=== PATIENT | female | born 1965 | race Caucasian/White ===

== ENCOUNTER 2017-03-24 08:27 | Observation (INO) ==
[2017-03-24] MEDS ORDERED: ASPIRIN PO STA (08:40)
--- NOTE | 2017-03-24 08:45 | EKG Report ---
Test Performed on : 03/24/2017 08:34:14 AM Test Reason : CHEST PAIN Blood Pressure : / mmHG Vent. Rate : 103 BPM Atrial Rate : 103 BPM P-R Int : 148 ms QRS Dur : 078 ms QT Int : 364 ms P-R-T Axes : 078 086 065 degrees QTc Int : 476 ms Sinus tachycardia. Otherwise normal ECG When compared with ECG of 01-FEB-2017 07:39, No significant change was found Unconfirmed Result
[2017-03-24 08:52] LABS: MANUAL DIFF NEEDED? NO
[2017-03-24 08:54] LABS: BASO% 0.4 % (0.0-0.8); EOS# 0.08 X1000 (0.0-0.7); EOS% 1.2 % (0.0-10.0); HEMATOCRIT 43.1 % (37.0-47.0); HEMOGLOBIN 14.4 g/dL (12.0-16.0); IMM GRAN# 0.02 X1000 (0.0-0.04); IMM GRAN% 0.3 % (0.0-0.5); LYMPH# 2.03 X1000 (1.2-3.4); LYMPH% 30.3 % (20.5-51.1); MCH 29.5 PG (27-31); MCHC 33.4 g/dL (33-37); MCV 88.3 FL (81-99); MONO# 0.24 X1000 (0.11-0.59); MONO% 3.6 % (1.7-9.3); MPV 10.2 FL (7.4-10.4); NEUT% 64.2 % (42.2-75.2); PLT 201 X1000 (130-400); RBC 4.88 XMIL (4.2-5.4)
[2017-03-24 09:13] LABS: AGAP 10; ALKALINE PHOSPHATASE 94 U/L (32-104); BUN 7 mg/dL (8-22); CALCIUM 8.7 mg/dL (8.8-10.2); CHLORIDE 102 mmol/L (98-107); CK PROFILE 32 U/L (24-173); COSMO 278; GOT 13 U/L (10-30); GPT 17 U/L (10-36); MAGNESIUM 1.8 mg/dL (1.5-2.7); POTASSIUM 3.4 mmol/L (3.5-5.1); SODIUM 139 mmol/L (136-145); TCO2 27 mmol/L (25-35); TOTAL PROTEIN 7.3 g/dL (6.3-8.3)
--- NOTE | 2017-03-24 09:16 | Diag Imaging Result Doc PS360 ---
EXAM: CHEST-PORTABLE HISTORY: CP TECHNIQUE: Portable AP COMPARISON: 07/09/2016 FINDINGS: The lungs are well expanded. The heart is not enlarged. The vessels are not distended. No pneumonia. No pleural effusions identified. Mild scoliosis. IMPRESSION: Negative chest. Electronically signed by Silverio Oliveira 03/24/2017 9:13 AM
[2017-03-24 09:38] LABS: INR 0.9 (0.86-1.15); PROTIME 12.9 Seconds (12.1-15.5)
[2017-03-24 09:58] LABS: URINE CULTURE PL NEEDED? NO
[2017-03-24 10:08] LABS: UR AMPHETAMINES QUAL NONE DETECTED (NONE DETECT); UR BARBITUATES QUAL NONE DETECTED (NONE DETECT); UR BENZODIAZEPIN QUAL NONE DETECTED (NONE DETECT); UR COCAINE QUAL NONE DETECTED (NONE DETECT); UR MDMA QUAL NONE DETECTED (NONE DETECT); UR METHADONE QUAL NONE DETECTED (NONE DETECT); UR METHAMPHETAMINE QUAL NONE DETECTED (NONE DETECT); UR OPIATES QUAL NONE DETECTED (NONE DETECT); UR OXYCODONE QUAL NONE DETECTED (NONE DETECT); UR PCP QUAL NONE DETECTED (NONE DETECT); UR TCA QUAL NONE DETECTED (NONE DETECT)
[2017-03-24 10:09] LABS: UR CANNABINOIDS QUAL PRESUMPTIVE POSITIVE (NONE DETECT)
[2017-03-24 10:24] LABS: BILIRUBIN URINE NEGATIVE (NEGATIVE); BLOOD URINE NEGATIVE (NEGATIVE); CLARITY CLEAR (CLEAR); COLOR YELLOW; GLUCOSE URINE NEGATIVE (NEGATIVE); LEUKOCYTES URINE NEGATIVE (NEGATIVE); NITRITE URINE NEGATIVE (NEGATIVE); PROTEIN URINE NEGATIVE (NEGATIVE); URINE EPITHELIAL CELLS <10 /HPF (<10); URINE SOURCE CLEAN CATCH; URINE WBC <10 /HPF (<10); UROBILINOGEN URINE NORMAL
[2017-03-24] MEDS ORDERED: ATIVAN IV ONE (10:47)
[2017-03-24] MEDS ORDERED: G.I. COCKTAIL PO ONE (10:47)
--- NOTE | 2017-03-24 10:49 | ED EKG INTERP ---
This chart was entered by Asya Navarrete Scribe, acting as scribe for Shellie Schmitz MD. EKG Interpretation - EKG Time of EKG reading by physician:: 08:34 EKG Read and Signed by:: Shellie Schmitz EKG Interpretation (*Must complete 3 of following elements*): Abnormal Rate: 103 Rhythm: sinus tachycardia [place]: normal QRS: normal [place] Interval: normal ST Wave: normal Comments: sinus tachycardia Attestation - Physician/ ROLANDA Attestation Patient care was provided by Advanced Practice Provider:: No The physician spent face to face time with patient:: Yes Advanced Practice Provider documentation review:: Supervising physician onsite and consulted in the evaluation and care of this patient. The physician did have a face to face encounter with the patient. This chart was documented by the indicated scribe, (Asya Navarrete Scribe) and accurately reflects the services I performed and decisions made by me, Shellie Schmitz MD, as attested by the provider's signature.
--- NOTE | 2017-03-24 11:57 | PROVIDER DOCUMENTATION ---
This chart was entered by Asya Navarrete Scribe, acting as scribe for Shellie Schmitz MD. HPI-Chest Pain - General Chief Complaint: Chest Pain Stated Complaint: CHEST PAIN Time Seen by Provider: 03/24/17 08:39 Source: patient Allergies/Adverse Reactions: Patient Allergies Allergy/AdvReac Type Severity Reaction Status Date / Time No Known Allergies Allergy Verified 03/24/17 08:37 Home Medications: Home Medication List Medication Instructions Recorded Confirmed Last Taken Type Mirtazapine [Remeron] 45 mg PO DAILY 02/20/15 03/24/17 08/21/15 20:00 History 45 Omeprazole [Prilosec] 40 mg PO DAILY 02/20/15 03/24/17 08/21/15 20:00 History 40 Fluphenazine HCl [Fluphenazine HCl] 5 mg PO DAILY 03/24/17 03/24/17 Unknown History - History of Present Illness-CP Nature of Presenting Problem: Patient is a 52 year old female who presents in the ED with complaints of chest pain. Patient states she woke up at 1:00 a.m. this morning with midsternal chest pain, and states she has also felt short of breath, has had a cough, and has a headache. She also states her pain intermittently worsens, and rates her pain at a 6 to 7 of 10 on the pain scale. She reports she has a history of hypertension but is no longer on blood pressure medication due to her blood pressure remaining normal, and reports history of a smoking. She also reports history of anxiety/depression, cholecystectomy, and reports she has had a normal stress test in the past (several years ago). She denies fever, nausea/ vomiting, urinary changes, diaphoresis, syncope, diarrhea, and any other symptoms. Location: reports: substernal Chest Pain Radiation: reports: no radiation Quality of Pain: reports: aching Severity in ED: moderate Onset/Duration: abrupt, this morning (1:00 a.m.) Timing: still present, intermittent Context/Activities at Onset: reports: none Modifying Factors: improves with: nothing Associated Symptoms: reports: headache, shortness of breath Nitro Today/Relief: no nitro taken today Aspirin Treatment Today: provided by ED Prior Chest Pain/Cardiac Workup: reports: stress test Similar Symptoms Previously?: No Recently Seen Here or By Another Healthcare Provider: No Review of Systems - Adult - REVIEW OF SYSTEMS - ADULT Constitutional: reports: no symptoms reported. denies: fever, night sweats Eyes: reports: no symptoms reported Ears, Nose, Mouth & Throat: reports: no symptoms reported Cardiovascular: reports: chest pain Respiratory: reports: shortness of breath Gastrointestinal: reports: no symptoms reported. denies: diarrhea, nausea, vomiting Genitourinary: reports: no symptoms reported. denies: see HPI, dysuria, discharge, frequency, flank pain, frequent UTI's, hematuria, hesitency, incontinence, urinary retention, urgency, other Musculoskeletal: reports: no symptoms reported Integumentary: reports: no symptoms reported Neurological: reports: headache/migraines. denies: syncope Psychiatric: reports: no symptoms reported Endocrine: reports: no symptoms reported Hematologic/Lymphatic: reports: no symptoms reported Allergic/Immunologic: reports: no symptoms reported Past History - Adult - PAST MEDICAL HISTORY-ADULT Review of Records: reports: Old Records Reviewed, Nursing Assessment Review, Medications Reviewed, Social history reviewed & non-contributory. Cardiovascular: reports: arrhythmia (tachycardia), HTN Respiratory: reports: asthma, COPD, sleep apnea Gastrointestinal: reports: denies history Obstetrical/Gynecological: reports: denies history Genitourinary: reports: denies history Musculoskeletal: reports: denies history Neurological: reports: denies history Psychiatric: reports: depression Endocrine/Immune: reports: denies history Other Conditions: reports: denies history - PRIOR SURGERIES/PROCEDURES Surgical/Procedure History: reports: cholecystectomy, hysterectomy - IMMUNIZATION STATUS Childhood Immunizations: See Nurse Assessment Flu Vaccine: See Nurse Assessment - FAMILY HISTORY Family History: reviewed, not pertinent - SOCIAL HISTORY Smoking: cigarettes, less than 1 pack/day Substance Use: none/never Alcohol Use Frequency: never Living Situation: family Physical Exam-General - PHYSICAL EXAM-ADULT Initial Vital Signs Reviewed: Yes - CONSTITUTIONAL General Appearance: alert, no apparent distress - EYES Eyes: PERRL/EOMI, pink conjunctivae - HEAD, EARS, NOSE, MOUTH & THROAT HENMT: normocephalic/atraumatic, moist mucous membranes - NECK Neck: non-tender, full range of motion, supple - RESPIRATORY Respiratory: chest non-tender, lungs clear, normal breath sounds, no pleuratic chest pain, no respiratory distress, no accessory muscle use - CARDIOVASCULAR Cardiovascular: normal peripheral pulses, regular rate, rhythm, no edema, no gallop, no JVD, no murmur - GASTROINTESTINAL (ABDOMEN) Abdominal Exam: normal bowel sounds, non tender, soft, no organomegaly, no pulsatile mass - LYMPHATIC Lymphatic: no adenopathy - MUSCULOSKELETAL Back Exam: normal inspection, no CVA tenderness, no vertebral tenderness Extremity: normal range of motion, non-tender, no pedal edema, no calf tenderness - SKIN Integumentary: normal color, normal turgor, warm/dry - NEUROLOGIC Neurologic: grossly normal, no motor/sensory deficits - PSYCHIATRIC Psych/Mental Status: normal mood/affect, oriented x 3 Progress - PLAN OF CARE/RESULTS Progress/Plan/Lab Results: Vital Signs - 8 hr 03/24/17 08:35 03/24/17 09:30 03/24/17 10:30 Pulse Rate 103 H 100 H 100 H Respiratory Rate 18 22 20 Blood Pressure 191/110 151/102 151/113 O2 Sat by Pulse Oximetry 93 L 95 95 03/24/17 11:30 Pulse Rate 104 H Respiratory Rate 20 Blood Pressure 148/78 O2 Sat by Pulse Oximetry 95 Laboratory Results - last 24 hr 03/24/17 03/24/17 03/24/17 08:45 08:45 08:45 WBC RBC Hgb Hct MCV MCH MCHC RDW Std Deviation Plt Count MPV Immature Gran % (Auto) Neut % (Auto) Lymph % (Auto) Price % (Auto) Eos % (Auto) Baso % (Auto) Immature Gran # (Auto) Neut # (Auto) Lymph # (Auto) Price # (Auto) Eos # (Auto) Baso # (Auto) PT INR D-Dimer Sodium 139 Potassium 3.4 L Chloride 102 Carbon Dioxide 27 Anion Gap 10 BUN 7 L Creatinine 0.7 Estimated GFR/1.73 m2 > 60 BUN/Creatinine Ratio 10 Glucose 152 H Calculated Osmolality 278 Calcium 8.7 L Magnesium 1.8 Total Bilirubin 0.30 AST 13 ALT 17 Alkaline Phosphatase 94 Creatine Kinase 32 Troponin T < 0.010 Vuv-[id number]-Lzggajjqaoc Pept 62 Total Protein 7.3 Albumin 4.0 Globulin 3.0 Albumin/Globulin Ratio 1.0 Urine Source Urine Color Urine Clarity Urine pH Ur Specific [place] Urine Protein Urine Ketones Urine Blood Urine Nitrite Urine Bilirubin Urine Urobilinogen Urine WBC Urine Microscopic WBC Ur Epithelial Cells Urine Glucose Urine Opiates Screen Ur Oxycodone Screen Urine Methadone Screen Ur Barbituates Screen Ur Tricyclics Screen Ur Phencyclidine Scrn Ur Amphetamines Screen U Methamphetamines Scrn Urine MDMA Screen U Benzodiazepines Scrn Urine Cocaine Screen U Cannabinoids Screen 03/24/17 03/24/17 03/24/17 08:45 08:45 09:50 WBC 6.69 RBC 4.88 Hgb 14.4 Hct 43.1 MCV 88.3 MCH 29.5 MCHC 33.4 RDW Std Deviation 13.3 Plt Count 201 MPV 10.2 Immature Gran % (Auto) 0.3 Neut % (Auto) 64.2 Lymph % (Auto) 30.3 Price % (Auto) 3.6 Eos % (Auto) 1.2 Baso % (Auto) 0.4 Immature Gran # (Auto) 0.02 Neut # (Auto) 4.29 Lymph # (Auto) 2.03 Price # (Auto) 0.24 Eos # (Auto) 0.08 Baso # (Auto) 0.03 PT 12.9 INR 0.90 D-Dimer 0.43 Sodium Potassium Chloride Carbon Dioxide Anion Gap BUN Creatinine Estimated GFR/1.73 m2 BUN/Creatinine Ratio Glucose Calculated Osmolality Calcium Magnesium Total Bilirubin AST ALT Alkaline Phosphatase Creatine Kinase Troponin T [id number]-[id number] Pept Total Protein Albumin Globulin Albumin/Globulin Ratio Urine Source CLEAN CATCH Urine Color YELLOW Urine Clarity CLEAR Urine pH 7.0 Ur Specific [place] 1.000 Urine Protein NEGATIVE Urine Ketones NEGATIVE Urine Blood NEGATIVE Urine Nitrite NEGATIVE Urine Bilirubin NEGATIVE Urine Urobilinogen NORMAL Urine WBC NEGATIVE Urine Microscopic WBC <10 Ur Epithelial Cells <10 Urine Glucose NEGATIVE Urine Opiates Screen Ur Oxycodone Screen Urine Methadone Screen Ur Barbituates Screen Ur Tricyclics Screen Ur Phencyclidine Scrn Ur Amphetamines Screen U Methamphetamines Scrn Urine MDMA Screen U Benzodiazepines Scrn Urine Cocaine Screen U Cannabinoids Screen 03/24/17 03/24/17 03/24/17 09:50 11:07 11:07 WBC RBC Hgb Hct MCV MCH MCHC RDW Std Deviation Plt Count MPV Immature Gran % (Auto) Neut % (Auto) Lymph % (Auto) Price % (Auto) Eos % (Auto) Baso % (Auto) Immature Gran # (Auto) Neut # (Auto) Lymph # (Auto) Price # (Auto) Eos # (Auto) Baso # (Auto) PT INR D-Dimer Sodium Potassium Chloride Carbon Dioxide Anion Gap BUN Creatinine Estimated GFR/1.73 m2 BUN/Creatinine Ratio Glucose Calculated Osmolality Calcium Magnesium Total Bilirubin AST ALT Alkaline Phosphatase Creatine Kinase 42 Troponin T < 0.010 Afb-O-Euxptimhdif Pept Total Protein Albumin Globulin Albumin/Globulin Ratio Urine Source Urine Color Urine Clarity Urine pH Ur Specific [place] Urine Protein Urine Ketones Urine Blood Urine Nitrite Urine Bilirubin Urine Urobilinogen Urine WBC Urine Microscopic WBC Ur Epithelial Cells Urine Glucose Urine Opiates Screen NONE DETECTED Ur Oxycodone Screen NONE DETECTED Urine Methadone Screen NONE DETECTED Ur Barbituates Screen NONE DETECTED Ur Tricyclics Screen NONE DETECTED Ur Phencyclidine Scrn NONE DETECTED Ur Amphetamines Screen NONE DETECTED U Methamphetamines Scrn NONE DETECTED Urine MDMA Screen NONE DETECTED U Benzodiazepines Scrn NONE DETECTED Urine Cocaine Screen NONE DETECTED U Cannabinoids Screen PRESUMPTIVE POSITIVE A Orders Category Date Time Status Cardiac Monitoring DIRECTED Care 03/24/17 08:41 Active Saline Loc NOW Care 03/24/17 08:41 Active CHEST-PORTABLE [RAD] Stat Exams 03/24/17 08:40 Completed CBC WITH ELECTRONIC DIFF [HEME] Stat Lab 03/24/17 08:45 Completed CK PROFILE [SP CHEM] Stat Lab 03/24/17 08:45 Completed CK PROFILE [SP CHEM] Stat Lab 03/24/17 11:07 Completed COMPREHENSIVE METABOLIC PANEL [CHEM] Stat Lab 03/24/17 08:[address] D-DIMER [address] [COAG] Stat Lab 03/24/17 08:45 Results MAGNESIUM [CHEM] Stat Lab 03/24/17 08:45 Completed PRO B-NATRIURETIC PEPTIDE Stat Lab 03/24/17 08:45 Com[address]IME WITH INR PL [COAG] Stat Lab 03/24/17 08:[address] [COAG] Stat Lab 03/24/17 08:45 Results TROPONIN T Stat Lab 03/24/17 08:45 Completed TROPONIN T Stat Lab 03/24/17 11:[address] W/POSS RFLX CULT [URINALYSIS] Stat Lab 03/24/17 09:50 Completed URINE DRUG SCREEN PL Stat Lab 03/24/17 09:50 Completed Aspirin Med 03/24/17 08:40 Discontinued 325 mg PO STAT STA Lido/Call Alk/Al&mg Hydrox [G.i. Cocktail] Med 03/24/17 10:47 Discontinued 30 ml PO NOW ONE Lorazepam [Ativan] Med 03/24/17 10:47 Discontinued 1 mg IV NOW ONE EKG [EKG] Stat Ther 03/24/17 08:41 Draft Result Diagrams: 03/24/17 08:45 03/24/17 08:45 - REASSESSMENT Reassessment #1 Time Reassessed: 11:56 Status: other (Pt still has CP after all ED management. Will admit to Dr. Garcia. ) - XRAY 1 XRAY Study: Chest Impression: Normal XRAY Interpretation: negative chest - CONSULTS/PCP/HOSPITALIST Notification #1 *Consult/PCP/Hospitalist*: Dr. Garcia Time Discussed: 11:57 Consult Disposition: Will see in ED, Admit Departure - Departure Date of Disposition Decision: 03/24/17 Time of Disposition Decision: 11:57 DIAGNOSIS: Chest pain Disposition: ADMITTED INPATIENT 09 Certified Medical Emergency: Emergent Condition: Stable Referrals and Follow-Ups: Lexus Claire MD [Primary Care Provider] - - Critical Care Note This patient required my direct & personal management of CC.: No Attestation - Physician/ ROLANDA Attestation Patient care was provided by Advanced Practice Provider:: No The physician spent face to face time with patient:: Yes Advanced Practice Provider documentation review:: Supervising physician onsite and consulted in the evaluation and care of this patient. The physician did have a face to face encounter with the patient. This chart was documented by the indicated scribe, (Asya Navarrete Scribe) and accurately reflects the services I performed and decisions made by me, Shellie Schmitz MD, as attested by the provider's signature.
[2017-03-24 12:52] LABS: PTT PL 32.6 Seconds (22.6-43.9)
--- NOTE | 2017-03-24 15:53 | HISTORY AND PHYSICAL ---
PRIMARY CARE PHYSICIAN: Dr. Claire CHIEF COMPLAINT: Chest pain. HISTORY OF PRESENTING ILLNESS: This is a 52-year-old female who presents to [facility] ER with complaints of midsternal, intermittent chest pain. States that she feels like something is sitting on her chest, it radiated through to her back. She also complained of shortness of breath, cough, and a headache. She states she had a normal stress test several years ago. Denied any nausea or diaphoresis. Her workup in the ER showed cardiac enzymes x2 sets were negative. Her EKG on arrival was sinus tachycardia at 103, so she was admitted to the medical unit for further evaluation and treatment. PAST MEDICAL HISTORY: Hypertension, anxiety, depression, COPD, and sleep apnea. PAST SURGICAL HISTORY: Cholecystectomy and a hysterectomy. FAMILY HISTORY: She has heart disease in both her parents and brother, cancer in both her parents, hypertension in both sides of her family, and a CVA in her mom. SOCIAL HISTORY: She currently lives with family. She was a 3 pack a day smoker for 40 years until the past 2 weeks she has decreased to 1 pack a day. Denies any alcohol use and states that she uses marijuana occasionally for her chronic pain. ALLERGIES: She has no known drug allergies. HOME MEDICATIONS: 1. Fluphenazine 5 mg p.o. daily. 2. Remeron 45 mg p.o. daily. 3. Prilosec 40 mg p.o. daily. LABORATORY DATA: Showed a white blood cell count of 6.69, hemoglobin 14.4, hematocrit 43.1, platelets 201, PT/INR 12.9 and 0.90 with a D-dimer of 0.43. Sodium 139, potassium 3.4, chloride 102, CO2 27, BUN 7, creatinine 0.7, glucose 152, magnesium 1.8. Cardiac enzymes x2 sets have been negative. Urinalysis was negative. Urine drug screen was presumptive positive for cannabinoids, otherwise negative. Chest x-ray showed a negative chest. EKG on arrival showed sinus tachycardia at 103. REVIEW OF SYSTEMS: She denied any fever, chills, blurred vision, dizziness. She was positive for substernal chest pain, shortness of breath, cough nonproductive, headache. She denied any abdominal pain, nausea, vomiting, constipation, diarrhea, or burning or hurting with urination. PHYSICAL EXAMINATION: VITAL SIGNS: On arrival: Pulse 103. Respirations 18. Blood pressure 191/ 110. Sating 93% on room air. Her blood pressure is currently down to 157/86 on arrival to the medical floor, sating 99% on 2 liters via nasal cannula. GENERAL: This is a 52-year-old female who is lying on the bed and answers questions appropriately. HEENT: Normocephalic, atraumatic. Pupils are equal, round, and reactive to light. Extraocular movements are intact. Oropharynx and nares are clear. NECK: Supple. LUNGS: Clear to auscultation bilaterally with equal lung expansion and chest wall movement. HEART: Regular rate and rhythm with no murmurs, rubs, or gallops. ABDOMEN: Soft, nontender, nondistended. Bowel sounds are present x4 quadrants. EXTREMITIES: There is no clubbing, cyanosis, or edema. NEUROLOGICAL: Cranial nerves 2 through 12 are grossly intact. ASSESSMENT: 1. Chest pain. 2. Hypertension. 3. Dyspnea. 4. Tobacco abuse. PLAN: 1. She was admitted to the medical unit at [place], placed on telemetry. 2. We will continue her home medications, give her a nicotine patch 21 mg transdermally. 3. We will schedule her for a stress test in the a.m. 4. She can have a healthy heart diet now and n.p.o. after midnight. 5. We will recheck a CBC and a BMP in the a.m. Dictated by BOB Curtis for Donovan Garcia MD cc: BOB Curtis MD Bhavna Gowda, MD pt examined, this could be bronchitis, pt does have a cough but wbc is normal and lungs sound clear , agree with noninvasive imaging [facility] MTDD
[2017-03-24] MEDS: NICODERM PATCH TD SCH (16:10)
[2017-03-24] MEDS ORDERED: TYLENOL PO PRN (18:24)
[2017-03-24] MEDS ORDERED: ZOFRAN IV PRN (18:25)
[2017-03-24] MEDS ORDERED: PRILOSEC PO SCH (21:00)
[2017-03-24] MEDS ORDERED: REMERON PO SCH (21:00)
[2017-03-24] MEDS ORDERED: PROLIXIN PO SCH (21:00)
[2017-03-24] MEDS: MORPHINE IV PRN (21:39)
--- NOTE | 2017-03-25 06:10 | EKG Report ---
Test Performed on : 03/25/2017 06:03:28 AM Test Reason : cp Blood Pressure : / mmHG Vent. Rate : 086 BPM Atrial Rate : 086 BPM P-R Int : 152 ms QRS Dur : 080 ms QT Int : 414 ms P-R-T Axes : 059 060 063 degrees QTc Int : 495 ms Normal sinus rhythm. Prolonged QT Abnormal ECG When compared with ECG of 24-MAR-2017 08:34, (Unconfirmed) No significant change was found Confirmed by Houston Sears MD ([id number]) on 04/13/2017 7:07:08 PM
[2017-03-25 06:50] LABS: MANUAL DIFF NEEDED? NO
[2017-03-25] MEDS ORDERED: PRILOSEC PO SCH (07:00)
[2017-03-25 07:03] LABS: BASO% 0.5 % (0.0-0.8); EOS# 0.09 X1000 (0.0-0.7); EOS% 1.5 % (0.0-10.0); HEMATOCRIT 42.8 % (37.0-47.0); HEMOGLOBIN 13.7 g/dL (12.0-16.0); IMM GRAN# 0.01 X1000 (0.0-0.04); IMM GRAN% 0.2 % (0.0-0.5); LYMPH# 2.18 X1000 (1.2-3.4); LYMPH% 35.8 % (20.5-51.1); MCH 28.4 PG (27-31); MCV 88.8 FL (81-99); MONO# 0.31 X1000 (0.11-0.59); MONO% 5.1 % (1.7-9.3); MPV 10.3 FL (7.4-10.4); NEUT% 56.9 % (42.2-75.2); PLT 196 X1000 (130-400); RBC 4.82 XMIL (4.2-5.4)
[2017-03-25 07:18] LABS: AGAP 8; BUN 5 mg/dL (8-22); CALCIUM 8.7 mg/dL (8.8-10.2); CHLORIDE 101 mmol/L (98-107); COSMO 274; POTASSIUM 3.6 mmol/L (3.5-5.1); SODIUM 139 mmol/L (136-145); TCO2 29 mmol/L (25-35)
[2017-03-25] MEDS: NICODERM PATCH TD SCH (08:32)
[2017-03-25] MEDS: MORPHINE IV PRN (08:32)
[2017-03-25] MEDS ORDERED: REMERON PO SCH (09:00)
[2017-03-25] MEDS ORDERED: PROLIXIN PO SCH (09:00)
[2017-03-25] MEDS ORDERED: ALBUTEROL NEB INH ONE (11:59)
[2017-03-25] MEDS ORDERED: LEXISCAN ONE (13:05)
[2017-03-25 15:25] VITALS: BP 131/70
[2017-03-25] MEDS ORDERED: ZITHROMAX PO ONE (16:15)
--- NOTE | 2017-03-25 16:28 | Diag Imaging Result Document ---
PROCEDURE NAME: MYOCARDIAL PERF SCAN, STR/REST - 03/25/2017 MYOCARDIAL PERFUSION SCAN: INDICATION: Chest pain. PROCEDURES PERFORMED: 1. Lexiscan stress (results dictated separately by primary team). 2. One-day stress rest myocardial perfusion imaging. PROCEDURE IN DETAIL: Ms. Templeton was brought to the nuclear laboratory and had a resting study with injection of 12.9 mCi of technetium-99m sestamibi with usual imaging protocol utilized. She subsequently was brought back and had a Lexiscan stress and at peak stress, was injected with 36.9 mCi of technetium-99m sestamibi with usual imaging protocol utilized. FINDINGS: 1. No evidence of abnormal extracardiac uptake. 2. TID ratio is 1.05. 3. Perfusion imaging demonstrates what appears to be normal homogeneous uptake of radiotracer throughout the myocardial segments. I do not see any evidence of ischemic related defects. 4. Normal ejection fraction of 73%. End-diastolic volume 62. End systolic volume of 17. Normal wall motion is noted. cc: MD Mariluz Carroll CRNP
--- NOTE | 2017-03-26 08:32 | DISCHARGE SUMMARY ---
ADMISSION DATE: 03/24/2017 DISCHARGE DATE: 03/25/2017 PRIMARY CARE PHYSICIAN: Dr. Claire. ADMISSION DIAGNOSES: 1. Chest pain. 2. Hypertension. 3. Dyspnea. 4. Tobacco abuse. DISCHARGE DIAGNOSES: 1. Chest pain, resolved. 2. Bronchitis. 3. Hypertension. 4. Dyspnea, improved. 5. Tobacco abuse. SUMMARY OF FINDINGS: This is a 52-year-old female who presented to the ER with midsternal intermittent chest pain, stating that it felt like something was sitting on her chest and radiated through to her back. She also complained of shortness of breath, cough and headache. States several years ago, she had a normal stress test. Workup in the ER showed cardiac enzymes were negative. EKG on arrival showed some sinus tachycardia at 103. We did a myocardial perfusion scan today that was read by Cardiology as normal. She is noted to have some wheezing today, and felt that she may have a touch of bronchitis, so it is felt that she can safely be discharged home. DISCHARGE MEDICATIONS: She will be given a prescription for a Z-Rich to take as directed. She will continue her home medications of fluphenazine 5 mg p.o. at bedtime; Remeron 45 mg p.o. at bedtime; Prilosec 40 mg p.o. daily, and her Premarin 0.45 mg p.o. daily. FOLLOWUP: She will follow up with her primary care physician in 1-2 weeks, call the office for an appointment. TIME SPENT: A 35-minute discharge. Dictated by BOB Curtis for Donovan Garcia MD cc: BOB Curtis MD Bhavna Gowda, MD pt examined, seen face to face, her stress test was unremarkable and cardiac exam was benign, if pain perissts she will need GI evaluation as an outpatient [facility]
== END 2017-03-25 18:11 | disposition home or self-care (01) ==
LOC: P.ED 08:27 → P.MEDSURG 08:27
PROVIDERS: ATTEND Internal Medicine

== ENCOUNTER 2019-04-17 12:28 | Inpatient (IN) ==
[2019-04-17] MEDS ORDERED: NS 1,000 ML IV ONE ×2 (12:54)
[2019-04-17] MEDS ORDERED: ZOFRAN IV ONE (12:54)
[2019-04-17] MEDS ORDERED: ZOSYN 4.5 GM in NS 100 ML IV ONE (12:54)
[2019-04-17] MEDS ORDERED: MORPHINE IV ONE (12:54)
[2019-04-17 13:30] LABS: BASO# 0.06 X1000 (0.0-0.2); BASO% 0.3 % (0.0-0.8); EOS# 0.03 X1000 (0.0-0.7); EOS% 0.2 % (0.0-10.0); HEMOGLOBIN 15.6 g/dL (12.0-16.0); IMM GRAN# 0.06 X1000 (0.0-0.04); IMM GRAN% 0.3 % (0.0-0.5); LYMPH# 3.74 X1000 (1.2-3.4); LYMPH% 20.7 % (20.5-51.1); MCH 28.9 PG (27-31); MCHC 34.7 g/dL (33-37); MCV 83.5 FL (81-99); MONO# 0.61 X1000 (0.11-0.59); MONO% 3.4 % (1.7-9.3); MPV 11.5 FL (7.4-10.4); NEUT# 13.58 X1000 (1.4-6.5); NEUT% 75.1 % (42.2-75.2); PLT 315 X1000 (130-400); RBC 5.39 XMIL (4.2-5.4); RDW 12.9 % (11.5-14.5); WBC 18.08 X1000 (4.8-10.8)
[2019-04-17 13:32] LABS: BILIRUBIN URINE NEGATIVE (NEGATIVE); BLOOD URINE NEGATIVE (NEGATIVE); CLARITY CLEAR (CLEAR); COLOR YELLOW; GLUCOSE URINE NEGATIVE (NEGATIVE); KETONE URINE 1+(Small) mg/dL (NEGATIVE); LEUKOCYTES URINE TRACE (NEGATIVE); NITRITE URINE NEGATIVE (NEGATIVE); PH URINE 6.5; PROTEIN URINE 1+(30 mg/dL) mg/dL (NEGATIVE); UROBILINOGEN URINE NORMAL
[2019-04-17 13:44] LABS: URINE BACTERIA 1+ /HFP; URINE CAST NONE SEEN /LPF; URINE CRYSTAL NONE SEEN /HPF; URINE EPITHELIAL CELLS >10 /HPF (<10); URINE RBC <10 /HPF (<10); URINE SOURCE CLEAN CATCH; URINE YEAST PRESENT /HPF
[2019-04-17 13:45] LABS: INR 1.11; PROTIME 14.9 Seconds (11.0-16.0)
[2019-04-17 13:49] LABS: BLOOD TYPE ARTERIAL; HCO3-(ACT) 21.7 mmoll (20.0-26.0); METHB 0.9 % (0.0-1.5); O2(CT) 18.8 mL/dL (15.0-23.0); O2HB 92.4 % (95.0-99.0); PCO2(98.6) 32 mmHg (35-45); PO2(98.6) 97 mmHg (60-100); SAMPLE BLOOD; SAO2 98.1 % (95.0-100.0); THB 14.4 g/dL (11.5-17.4)
[2019-04-17] MEDS ORDERED: DIFLUCAN 400 MG/NS 400 MG/200 ML IVPB IV ONE (13:51)
[2019-04-17 13:56] LABS: ALLEN TEST YES; MODALITY ROOM AIR
[2019-04-17 14:02] LABS: AGAP 20; ALBUMIN 4.7 g/dL (3.5-5.0); ALKALINE PHOSPHATASE 126 U/L (32-104); BUN 11 mg/dL (8-22); CALCIUM 9.2 mg/dL (8.8-10.2); CHLORIDE 104 mmol/L (98-107); CK PROFILE 55 U/L (24-173); COSMO 285; ESTIMATED GFR 58; GLUCOSE 111 mg/dL (70-104); GOT 16 U/L (10-30); GPT 15 U/L (10-36); LIPASE 10 U/L (13-60); MAGNESIUM 1.6 mg/dL (1.5-2.7); POTASSIUM 3.5 mmol/L (3.5-5.1); SODIUM 143 mmol/L (136-145); TCO2 19 mmol/L (25-35); TOTAL BILIRUBIN < 0.15 mg/dL (0.20-1.00); TOTAL PROTEIN 7.6 g/dL (6.3-8.3)
[2019-04-17] MEDS: DIFLUCAN 200 MG/NS 100 ML IV SCH ×2 (14:15→15:15)
--- NOTE | 2019-04-17 14:58 | Diag Imaging Result Doc PS360 ---
EXAM: CHEST-1 VIEW 04/17/2019 HISTORY: severe abd pain, shortness of breath, free air? TECHNIQUE: Erect AP portable at 1442 COMMENT: There is increased interstitial markings. The heart size is slightly enlarged. Compared to 01/02/2019 both findings are worse. IMPRESSION: Mild pulmonary edema. No evidence of pneumothorax or pneumoperitoneum. Electronically signed by Jose A Lauren 04/17/2019 2:55 PM
--- NOTE | 2019-04-17 15:03 | Diag Imaging Result Doc PS360 ---
EXAM: CT ABD/PELVIS W/IV CONT ONLY 04/17/2019 HISTORY: LLQ pain, sepsis TECHNIQUE: This exam was performed using automated exposure control, adjustment of mA or kV according to patient size, and/or use of iterative reconstruction technique. COMMENT: There is atelectasis or fibrosis in the right middle lobe. This is worse than on the previous CT of the chest dated 05/29/2018. There are no previous abdominal studies. The liver, spleen, adrenal glands, pancreas, and kidneys are unremarkable. There has been cholecystectomy. There are some atherosclerotic calcifications in the aorta. There is no evidence of aneurysm. There is no evidence of bowel obstruction. There is fluid throughout much of the colon. There is no evidence of significant adenopathy or bowel obstruction. Pelvis: There is diverticulosis in the descending and sigmoid colon. There is some mild apparent paracolic inflammation in the distal sigmoid colon. There is no evidence of free fluid or abscess. The appendix is unremarkable. The urinary bladder is not distended. The regional skeleton is intact. IMPRESSION: Mild sigmoid diverticulitis. The possibility of enterocolitis cannot be excluded. Electronically signed by Jose A Lauren 04/17/2019 3:00 PM
[2019-04-17] MEDS ORDERED: NICODERM PATCH TD ONE (15:45)
--- NOTE | 2019-04-17 15:50 | EKG Report ---
Test Performed on : 04/17/2019 1:45:55 PM Test Reason : tachycardic weakness Blood Pressure : / mmHG Vent. Rate : 099 BPM Atrial Rate : 099 BPM P-R Int : 134 ms QRS Dur : 076 ms QT Int : 386 ms P-R-T Axes : 067 066 048 degrees QTc Int : 495 ms Normal sinus rhythm. Possible Left atrial enlargement Nonspecific ST abnormality Prolonged QT Abnormal ECG When compared with ECG of 14-NOV-2018 07:56, No significant change was found Unconfirmed Result
--- NOTE | 2019-04-17 17:11 | PROVIDER DOCUMENTATION ---
This chart was entered by Jyotsna Rapp Scribe, acting as scribe for Juan Nix MD. HPI-Abdominal Pain/GI Problem - General Chief Complaint: Nausea/Vomiting Stated Complaint: V/ D / ABD PAIN Time Seen by Provider: 04/17/19 12:47 Source: patient Allergies/Adverse Reactions: Patient Allergies Allergy/AdvReac Type Severity Reaction Status Date / Time No Known Allergies Allergy Verified 01/02/19 11:15 Home Medications: Home Medication List Medication Instructions Recorded Confirmed Last Taken Type Hydrocodone/Acetaminophen 7.5 each PO TID PRN 05/28/18 04/17/19 04/16/19 History [Hydrocodone-Acetamin 7.5-325] Lisinopril 10 mg PO DAILY 05/28/18 04/17/19 04/16/19 History Mirtazapine 45 mg PO/SL QHS 05/28/18 04/17/19 04/16/19 History Omeprazole 40 mg PO DAILY@0700 05/28/18 04/17/19 04/16/19 History Tizanidine HCl 4 mg PO BID PRN 05/28/18 04/17/19 12/27/18 20:00 History Amlodipine [Norvasc] 5 mg PO BID 12/28/18 04/17/19 04/16/19 History Phentermine HCl 1 dose PO DAILY 04/17/19 04/17/19 04/16/19 History - History of Present Illness-ABD Nature of Presenting Problems: Patient is a 54 year old female who presents to the ED with LLQ abdominal pain. States nausea and vomiting. Reports vomiting bright red blood. Denies diarrhea. History of IBS. States symptoms started yesterday. Abdominal Pain Onset Location: reports: LLQ Pain Radiation: reports: no radiation Quality of Pain: reports: aching Severity in ED: reports: moderate Onset/Duration: reports: 24 hours ago Timing: reports: still present, getting worse Activities at Onset: reports: light activity Associated Symptoms: reports: nausea, vomiting. denies: diarrhea Last BM: last night Dark Stools Present?: reports: none noticed Rectal Bleeding: reports: none Rectal Pain: reports: none Emesis Description: reports: red blood Bruising or Bleeding Gums?: No Similar Symptoms Previously?: Yes Recently seen or treated by another doctor?: No Review of Systems - Adult - REVIEW OF SYSTEMS - ADULT ROS:: limited per condition Constitutional: reports: no symptoms reported. denies: chills, fever, fatique Eyes: reports: no symptoms reported Ears, Nose, Mouth & Throat: reports: no symptoms reported Cardiovascular: reports: no symptoms reported Respiratory: reports: no symptoms reported Gastrointestinal: reports: see HPI, abdominal pain (LLQ), hematemesis, nausea, vomiting. denies: diarrhea Genitourinary: reports: no symptoms reported Musculoskeletal: reports: no symptoms reported Integumentary: reports: no symptoms reported Neurological: reports: no symptoms reported Psychiatric: reports: no symptoms reported Endocrine: reports: no symptoms reported Hematologic/Lymphatic: reports: no symptoms reported Allergic/Immunologic: reports: no symptoms reported All Other Systems: Reviewed and Negative Past History - Adult - PAST MEDICAL HISTORY-ADULT Review of Records: reports: Old Records Reviewed, Social history reviewed & non- contributory. Major Childhood Illnesses: reports: denies history Cardiovascular: reports: arrhythmia (tachycardia), HTN, hyperlipidemia Respiratory: reports: asthma, COPD, sleep apnea Gastrointestinal: reports: IBS Obstetrical/Gynecological: reports: denies history Genitourinary: reports: denies history Musculoskeletal: reports: chronic pain (back; pain patient), other fractures, orthopedic injury Neurological: reports: denies history Psychiatric: reports: anxiety, depression (manic) Endocrine/Immune: reports: denies history Other Conditions: reports: denies history - PRIOR SURGERIES/PROCEDURES Surgical/Procedure History: reports: cholecystectomy, hysterectomy, breast (R biopsy) - IMMUNIZATION STATUS Childhood Immunizations: See Nurse Assessment Flu Vaccine: See Nurse Assessment - FAMILY HISTORY Family History: reviewed, not pertinent - SOCIAL HISTORY Smoking: cigarettes, greater than 1 pack/day Provider spent 3-5 mins advising pt. on dangers of tobacco.: Discussed manners to quit use, and f/u contacts for add'l counseling. Substance Use: denies Living Situation: family Physical Exam-General - PHYSICAL EXAM-ADULT Initial Vital Signs Reviewed: Yes - CONSTITUTIONAL General Appearance: alert, moderate distress. negative: lethargic - HEAD, EARS, NOSE, MOUTH & THROAT HENMT: normocephalic/atraumatic, other (dry mucous membranes. poor dentition). negative: angioedema - RESPIRATORY Respiratory: chest non-tender, rhonchi (scattered), increased rate. negative: respiratory distress - CARDIOVASCULAR Cardiovascular: normal peripheral pulses, tachycardia. negative: systolic murmur - GASTROINTESTINAL (ABDOMEN) Abdominal Exam: abnormal bowel sounds (hypoactive), guarding, tenderness (LLQ and RLQ. worse in LLQ). negative: rebound - MUSCULOSKELETAL Extremity: normal inspection. negative: deformity, erythema - SKIN Integumentary: normal color, warm/dry, other (poor skin turgor). negative: pallor, rash - NEUROLOGIC Neurologic: grossly normal. negative: aphasia, facial droop - PSYCHIATRIC Psych/Mental Status: tearful. negative: anxious, paranoid Progress - PLAN OF CARE/RESULTS Progress/Plan/Lab Results: Vital Signs - 8 hr 04/17/19 12:35 Temperature 98 F Pulse Rate 126 H Respiratory Rate 18 Blood Pressure 91/58 O2 Sat by Pulse Oximetry 97 Orders Category Date Time Status Cardiac Monitoring DIRECTED Care 04/17/19 12:46 Active Nursing- Obtain EKG ONCE Care 04/17/19 12:46 Active Saline Loc NOW Care 04/17/19 12:46 Active AMYLASE [CHEM] Stat Lab 04/17/19 12:46 Ordered CBC WITH DIFF [HEME] Stat Lab 04/17/19 12:46 Ordered COMPREHENSIVE METABOLIC PANEL [CHEM] Stat Lab 04/17/19 12:46 Uncollected LIPASE [CHEM] Stat Lab 04/17/19 12:[address] W/POSS RFLX CULT [URINALYSIS] Stat Lab 04/17/19 12:46 Uncollected EKG [EKG] Stat Ther 04/17/19 12:46 Ordered Result Diagrams: 04/17/19 12:59 04/17/19 12:59 - EKG 1 Time of EKG reading by physician:: 13:45 EKG Read and Signed by:: Juan Nix EKG Interpretation (*Must complete 3 of following elements*): Abnormal (prolonged QT) Rate: 99 Rhythm: normal sinus rhythm [place]: normal OK Interval: normal Comments: possible left atrial enlargement; nonspecific ST abnormality; - XRAY 1 XRAY Study: Chest Impression: See EMR Report (EXAM: CHEST-1 VIEW 04/17/2019 HISTORY: severe abd pain, shortness of breath, free air? TECHNIQUE: Erect AP portable at 1442 COMMENT: There is increased interstitial markings. The heart size is slightly enlarged. Compared to 01/02/2019 both findings are worse. IMPRESSION: Mild pulmonary edema. No evidence of pneumothorax or pneumoperitoneum. Electronically signed by Jose A Lauren 04/17/2019 2:55 PM 04/17/19 1455 Interpreting Physician: Jose A Lauren MD Dictated Date/Time: 04/17/19 3954 cc: Juan Nix MD; Ulises Hatfield MD) - CT/MRI 1 CT Study: Abdomen, Pelvis Impression: See EMR Report ( EXAM: CT ABD/PELVIS W/IV CONT ONLY 04/17/2019 HIS TORY: LLQ pain, sepsis TECHNIQUE: This exam was performed using automated exposure control, adjustment of mA or kV according to patient size, and/or use of iterative reconstruction technique. COMMENT: There is atelectasis or fibrosis in the right middle lobe. This is worse than on the previous CT of the chest dated 05/29/2018. There are no previous abdominal studies. The liver, spleen, adrenal glands, pancreas, and kidneys are unremarkable. There has been cholecystectomy. There are some atherosclerotic calcifications in the aorta. There is no evidence of aneurysm. There is no evidence of bowel obstruction. There is fluid throughout much of the colon. There is no evidence of significant adenopathy or bowel obstruction. Pelvis: There is diverticulosis in the descending and sigmoid colon. There is some mild apparent paracolic inflammation in the distal sigmoid colon. There is no evidence of free fluid or abscess. The appendix is unremarkable. The urinary bladder is not distended. The regional skeleton is intact. IMPRESSION: Mild sigmoid diverticulitis. The possibility of enterocolitis cannot be excluded. Electronically signed by Jose A Lauren 04/17/2019 3:00 PM 04/17/19 1500 Interpreting Physician: Jose A Lauren MD Dictated Date/Time: 04/17/19 5696 cc: Juan Nix MD; Ulises Hatfield MD) - CONSULTS/PCP/HOSPITALIST Notification #1 *Consult/PCP/Hospitalist*: Dr. Garcia paged at [phone] Time Discussed: 15:44 Reason/Comments: Dr. Nix consulted with Dr. Garcia about patient. Consult Disposition: Admit Departure - Departure Date of Disposition Decision: 04/17/19 Time of Disposition Decision: 17:10 DIAGNOSIS: Diverticulitis, Tobacco use disorder Sepsis without acute organ dysfunction Qualifiers: Sepsis type: sepsis due to unspecified organism Qualified Code(s): A41.9 - Sepsis, unspecified organism Disposition: ADMITTED INPATIENT 09 Certified Medical Emergency: Emergent Condition: Fair - Critical Care Note This patient required my direct & personal management of CC.: No Attestation - Physician/ ROLANDA Attestation Patient care was provided by Advanced Practice Provider:: No The physician spent face to face time with patient:: Yes Advanced Practice Provider documentation review:: Supervising physician onsite and consulted in the evaluation and care of this patient. The physician did have a face to face encounter with the patient. This chart was documented by the indicated scribe, (Jyotsna Rapp Scribe) and accurately reflects the services I performed and decisions made by me, Juan Nix MD, as attested by the provider's signature.
[2019-04-17] MEDS ORDERED: NORCO-7.5 PO PRN (17:36)
[2019-04-17] MEDS ORDERED: NEXIUM IV SCH (17:36)
[2019-04-17] MEDS ORDERED: NICODERM PATCH TD PRN (17:36)
[2019-04-17] MEDS ORDERED: ZOFRAN IV PRN (17:36)
[2019-04-17] MEDS ORDERED: TYLENOL PO PRN (17:36)
[2019-04-17] MEDS ORDERED: ZANAFLEX PO PRN (17:36)
--- NOTE | 2019-04-17 17:58 | HISTORY AND PHYSICAL ---
PRIMARY CARE PHYSICIAN: Dr. Ulises Hatfield. CHIEF COMPLAINT: Left lower quadrant abdominal pain with nausea, vomiting of bright red blood that began yesterday and progressively worsened. HISTORY OF PRESENTING ILLNESS: This is a 54-year-old female who presents to [facility] ER with complaints of left lower quadrant abdominal pain with nausea, vomiting. Reports vomiting bright red blood that began this morning. The abdominal pain began yesterday. She states she had a couple episodes where she vomited bright red blood today. She does have a history of IBS. Her workup showed a white blood cell count of 18.08. Her urinalysis was negative except it was positive for yeast. We did a CT of the abdomen and pelvis with IV contrast only that showed a mild sigmoid diverticulitis. The possibility of enterocolitis could not be excluded so she will be admitted to the [facility] for GI consultation for further evaluation and treatment. PAST MEDICAL HISTORY: Of IBS, hypertension, hyperlipidemia, chronic pain, anxiety, depression. PAST SURGICAL HISTORY: Cholecystectomy, hysterectomy and a right breast biopsy. FAMILY HISTORY: Reviewed and noncontributory. SOCIAL HISTORY: She currently lives with family. Smokes a pack of cigarettes a day and has done so for 36 years. Denies any alcohol or illicit drug use. ALLERGIES: She has no known drug allergies. HOME MEDICATIONS: We will hold her Norvasc 5 mg p.o. b.i.d., lisinopril 10 mg p.o. daily, phentermine 37.5 mg p.o. daily. Will continue her hydrocodone 7.5 one p.o. t.i.d. p.r.n., mirtazapine 45 mg p.o./SL at bedtime, omeprazole 40 mg p.o. daily and tizanidine 4 mg p.o. b.i.d. LABORATORY DATA: Showed a white blood cell count of 18.08, hemoglobin 15.6, hematocrit 45, platelets 315,000, PT and INR of 14.9 and 1.11. ABG with a pH of 7.40, pCO2 of 32, PO2 97, bicarb 21.7 this was on room air. Sodium 143, potassium 3.5, chloride 104, CO2 19, BUN of 11, creatinine 1, glucose 111, magnesium 1.6, amylase 24, lipase 10, plasma lactate 1. Urinalysis was negative except for the presence of yeast. CT of the abdomen and pelvis showed mild sigmoid diverticulitis. The possibility of enterocolitis could not be excluded. Chest x-ray showed mild pulmonary edema but no evidence of pneumothorax or pneumoperitoneum. EKG showed normal sinus rhythm at 99. REVIEW OF SYSTEMS: She denied any fever, chills, blurred vision, dizziness, chest pain, coughing, shortness of breath. She had left lower quadrant abdominal pain, hematemesis, nausea. Denied any burning or hurting with urination. PHYSICAL EXAMINATION: On arrival she had a temperature of 98 degrees, pulse 126, respirations 18, blood pressure 91/58, currently, blood pressure is up to 127/77. GENERAL: This is a 54-year-old female who is lying in the bed answers questions appropriately. HEENT: Normocephalic, atraumatic. Normal ENT inspection. Oropharynx and nares are clear. Pupils are equal, round and reactive to light, accommodation. Extraocular movements are intact. NECK: Normal inspection, normal range of motion. LUNGS: Clear to auscultation bilaterally. Equal lung expansion, chest wall movement. HEART: Regular rate and rhythm. No murmurs, rubs, or gallops. ABDOMEN: Soft, tender to palpation to the left lower quadrant. Bowel sounds are present x4 quadrants. MUSCULOSKELETAL: She had 5/5 strength x4 extremities. NEUROLOGICAL: The cranial nerves 2-12 are grossly intact. ASSESSMENT: 1. Sigmoid diverticulitis. 2. Leukocytosis. 3. Candidiasis in urine. 4. Hematemesis. 5. Mild hypotension. 6. Tobacco abuse . PLAN: She will be transferred to the [facility] for GI consultation, admitted, placed on normal saline at 125 mL an hour, Zosyn 3.375 g IV q.6, clear liquid diet. Again will consult GI, do serial hemoglobin and hematocrit q.6 x3, serial lactate. She received 400 mg of fluconazole in the emergency room. Will continue home medications as previously identified. We will check a magnesium level in the a.m. Further orders after seen by attending and linux consultant. Dictated by BOB Curtis for Donovan Garcia MD cc: MD Donovan Rodriguez MD
--- NOTE | 2019-04-17 18:20 | HISTORY AND PHYSICAL ---
SUBJECTIVE: The patient has no major complaints. She came in for nausea and vomiting. Reportedly, she had some hematemesis. Unclear entirely what the source of that was, but in any case she was evaluated, was found to have diverticulitis and she does have left lower quadrant pain on exam so we will initiate antibiotics for that. She does report the hematemesis, so unclear if there is an issue associated with that as far as an endoscopy is probably going to be difficult in this setting since she has diverticulitis, although upper endoscopy I am not sure is completely excluded, but that will be at the discretion of GI. We will continue PPI. We will follow hemoglobin and hematocrit and monitor closely. cc: Donovan Garcia MD
[2019-04-17] MEDS: ZOSYN 3.375 GM in NS 50 ML IV SCH (18:23)
[2019-04-17] MEDS: NS 1,000 ML IV SCH (18:23)
[2019-04-17] MEDS: NORCO-7.5 PO PRN (18:29)
[2019-04-17 18:33] LABS: HEMATOCRIT 39.1 % (37.0-47.0); HEMOGLOBIN 13.5 g/dL (12.0-16.0)
[2019-04-17] MEDS: PROTONIX IV SCH (21:05)
[2019-04-17] MEDS: REMERON SOLTAB PO SCH (21:05)
[2019-04-17] MEDS: SODIUM CHLORIDE 0.9% INJ SCH (21:05)
[2019-04-18 01:06] LABS: HEMATOCRIT 37.2 % (37.0-47.0); HEMOGLOBIN 12.9 g/dL (12.0-16.0)
[2019-04-18] MEDS: ZOSYN 3.375 GM in NS 50 ML IV SCH ×4 (01:34→18:15)
[2019-04-18] MEDS: NS 1,000 ML IV SCH ×3 (02:14→20:44)
[2019-04-18 07:26] LABS: BASO# 0.03 X1000 (0.0-0.2); BASO% 0.4 % (0.0-0.8); EOS% 1.3 % (0.0-10.0); HEMATOCRIT 37.4 % (37.0-47.0); HEMOGLOBIN 12.8 g/dL (12.0-16.0); LYMPH# 3.17 X1000 (1.2-3.4); LYMPH% 42.3 % (20.5-51.1); MCH 29.4 PG (27-31); MCHC 34.2 g/dL (33-37); MCV 85.8 FL (81-99); MONO# 0.27 X1000 (0.11-0.59); MONO% 3.6 % (1.7-9.3); MPV 11.2 FL (7.4-10.4); NEUT# 3.92 X1000 (1.4-6.5); NEUT% 52.4 % (42.2-75.2); PLT 205 X1000 (130-400); RBC 4.36 XMIL (4.2-5.4); RDW 13.2 % (11.5-14.5); WBC 7.49 X1000 (4.8-10.8)
[2019-04-18 07:29] LABS: AGAP 11; ALB/GLOB RATIO 1.5; ALBUMIN 3.5 g/dL (3.5-5.0); ALKALINE PHOSPHATASE 82 U/L (32-104); BUN 6 mg/dL (8-22); CALCIUM 7.3 mg/dL (8.8-10.2); CHLORIDE 108 mmol/L (98-107); COSMO 279; CREATININE 0.8 mg/dL (0.5-0.9); ESTIMATED GFR > 60; GLUCOSE 100 mg/dL (70-104); GOT 14 U/L (10-30); GPT 10 U/L (10-36); MAGNESIUM 1.5 mg/dL (1.5-2.7); POTASSIUM 2.9 mmol/L (3.5-5.1); SODIUM 141 mmol/L (136-145); TCO2 22 mmol/L (25-35); TOTAL BILIRUBIN 0.15 mg/dL (0.20-1.00); TOTAL PROTEIN 5.9 g/dL (6.3-8.3)
[2019-04-18 08:04] LABS: HEMATOCRIT 36.8 % (37.0-47.0); HEMOGLOBIN 12.7 g/dL (12.0-16.0)
[2019-04-18] MEDS ORDERED: POTASSIUM CHLORIDE 60 MEQ in NS 500 ML IV ONE (13:13)
[2019-04-18] MEDS: NORCO-7.5 PO PRN (15:09)
--- NOTE | 2019-04-18 15:58 | PROGRESS NOTE ---
DATE: 04/18/2019 SUBJECTIVE: The patient reports he is still having some abdominal pain. No more episodes of hematemesis. OBJECTIVE: Vital Signs: Temperature 98.0 degrees, heart rate 81, respiratory rate 20, blood pressure 116/64, O2 saturation 95% on room air. General Examination: This is a 54-year-old female lying in bed, in no acute distress. Cardiovascular: S1, S2 heard. No murmurs, gallops, or rubs. Regular rate and rhythm. Respiratory: Clear bilaterally to auscultation. No work of breathing or using accessory muscles. Abdomen: Soft. A little bit tender to palpation in the left lower quadrant but there are no signs of peritoneal irritation. Bowel sounds present. No organomegaly. Extremities: No clubbing, cyanosis, or edema. Peripheral pulses present in both legs. Neurological: Patient is alert and oriented x3. Moves 4 extremities. LABORATORY DATA: White cell count 7.49, hemoglobin 12.7, hematocrit 36.8, platelets 205,000. Potassium 2.9, creatinine 0.8. ASSESSMENT AND PLAN: 1. Sigmoid diverticulitis. The patient has been started on Zosyn 3.375 mg IV q.6 hours and clear liquid diet as the patient is still complaining of pain but white cell count is back to normal. We will continue with the current management. 2. Hematemesis. No more episodes of this hematemesis anymore. At this point, we will do hemoglobin and hematocrit q.6 hours x3. So far hemoglobin is stable. We will see what GI has to say. In the other hand patient got really angry when I refused to change her diet to regular diet and explained to her she can not have a regular diet because of her recent bleeding and also is planning to do endoscopy tomorrow. Patient looks not to understand her current clinical situation. 3. Mild hypotension, resolved. Patient is on intravenous fluids. 4. Tobacco abuse. Patient encouraged to stop smoking. 5. Candiduria. I do not think we need to treat liana in the urine and considering that the urine culture is negative, we are not going to continue with that medication. 6. Disposition. We will continue to monitor this patient closely, following lead from . cc: Christ Anderson MD MTDD
--- NOTE | 2019-04-18 20:00 | GASTROENTEROLOGY CONSULTATION ---
DATE: 04/18/2019 REASON FOR CONSULTATION: Hematemesis. HISTORY OF PRESENT ILLNESS: Ms. Angeles Templeton is a 54-year-old woman, with past medical history of hypertension, hyperlipidemia, chronic pain, anxiety, depression, bipolar disorder, diverticulosis, history of gastritis, colonic polyps, irritable bowel syndrome, GERD, who presents with 2 days of left lower quadrant pain with associated small volume hematemesis. The patient reports that 2 days ago she developed severe, 10/10, nonradiating left lower quadrant pain. She subsequently had an episode of scant hematemesis with bright red blood. Subsequent episodes of vomiting were normal, and then again she had another episode of small volume hematemesis. She says that she has a history of GERD and that has been controlled with Prilosec. She denies any blood thinner use or NSAIDs. She does have a cough at baseline. Reports positive chills, noncardiac chest pain. No fevers. Her last EGD and colonoscopy were in 2016 in February. At that time, she had erosive gastritis and multiple colonic polyps, one notably 3 to 4 cm in size in the hepatic flexure which required biopsy and tattoo, and referral to B I guess for polypectomy. She also has moderate to severe diverticulosis in the descending, sigmoid, and rectosigmoid colon, and internal hemorrhoids. The patient denies any weight loss. She has chronic cough associated with COPD. No shortness of breath currently. REVIEW OF SYSTEMS: As per HPI, otherwise 12 point review of systems is negative. PAST MEDICAL HISTORY: As per HPI. PAST SURGICAL HISTORY: 1. Cholecystectomy. 2. Hysterectomy. 3. Right breast biopsy. MEDICATIONS: 1. Norvasc. 2. Lisinopril. 3. Phentermine. 4. Hydrocodone. 5. Mirtazapine. 6. Omeprazole. 7. Tizanidine. ALLERGIES: No known drug allergies. SOCIAL HISTORY: She smokes 1-1/2 packs per day, down from 3 packs per day. No alcohol or drug use. She does use marijuana occasionally. FAMILY HISTORY: Mother had stomach cancer. PHYSICAL EXAMINATION: Vital Signs: Temperature is 98.0 degrees, heart rate 81, respiratory rate 20, blood pressure 116/64, and O2 saturation 95% on 2 L nasal cannula. General: The patient is awake, alert, oriented, in no acute distress. HEENT: Sclerae anicteric. Moist mucous membranes. Extraocular movements intact. Neck: Supple. No JVD or lymphadenopathy. Cardiac: Regular rate and rhythm. No murmurs. Abdomen: Obese, soft, nontender, and nondistended. Normoactive bowel sounds. No rebound or guarding. Extremities: No clubbing, cyanosis, or edema. Neurologic: Nonfocal. LABS: White count of 7.4, from 18.0 yesterday, hemoglobin is 12.7, platelets of 205,000. INR of 1.11. Sodium 141, potassium of 2.9 from 3.5 yesterday, chloride of 108, bicarb 22, BUN of 6, creatinine 0.8, glucose of 100. Total bilirubin and LFTs are within normal limits. Albumin of 3.5. UA shows protein, ketones, trace white cells, and greater than 10 epithelial cells. Blood cultures x2 are pending. Urine cultures no growth. IMAGING: CT of the abdomen and pelvis with IV contrast shows mild sigmoid diverticulitis. Chest x-ray shows mild pulmonary edema. No evidence of pneumothorax or pneumoperitoneum. ASSESSMENT AND PLAN: 1. Ms. Angeles Templeton is a 54-year-old woman, with past medical history of gastroesophageal reflux disease, irritable bowel syndrome, colonic polyps, diverticulosis, and gastritis, who presents with sigmoid diverticulitis. This seems to be improving with supportive care and antibiotics. She is currently on Zosyn. She did have a couple of episodes of hematemesis prior to admission. I suspect Helga-Avendaño tear versus gastritis or esophagitis. She is on a proton pump inhibitor at home. She does not take any blood thinners. No history of liver disease or peptic ulcer disease. Prior gastric biopsies were negative for Helicobacter pylori. She is currently on pantoprazole 40 mg intravenous twice daily, antiemetics, pain control. We will give her a low fiber diet today, n.p.o. after midnight, and diagnostic esophagogastroduodenoscopy tomorrow with Dr. Lugo. She will need to have a colonoscopy in 4 to 6 weeks upon discharge once she completes a course for her diverticulitis. 2. Hypokalemia. Replete her potassium p.r.n. 3. Tobacco abuse. Counseled on smoking cessation. 4. Gastroesophageal reflux disease, currently controlled. She is on proton pump inhibitor. Thank you for this consult. We will follow with you. Please call with any questions or concerns.
[2019-04-18] MEDS: SODIUM CHLORIDE 0.9% INJ SCH (20:41)
[2019-04-18] MEDS: PROTONIX IV SCH (20:41)
[2019-04-18] MEDS: REMERON SOLTAB PO SCH (20:41)
[2019-04-19] MEDS: ZOSYN 3.375 GM in NS 50 ML IV SCH ×4 (00:23→19:28)
[2019-04-19] MEDS: NS 1,000 ML IV SCH ×2 (05:16→05:26)
[2019-04-19 07:25] LABS: BASO# 0.03 X1000 (0.0-0.2); BASO% 0.6 % (0.0-0.8); EOS# 0.08 X1000 (0.0-0.7); EOS% 1.5 % (0.0-10.0); HEMATOCRIT 39.8 % (37.0-47.0); HEMOGLOBIN 13.7 g/dL (12.0-16.0); LYMPH# 1.81 X1000 (1.2-3.4); LYMPH% 34.3 % (20.5-51.1); MCH 29.5 PG (27-31); MCHC 34.4 g/dL (33-37); MCV 85.8 FL (81-99); MONO# 0.17 X1000 (0.11-0.59); MONO% 3.2 % (1.7-9.3); NEUT# 3.19 X1000 (1.4-6.5); NEUT% 60.4 % (42.2-75.2); PLT 193 X1000 (130-400); RBC 4.64 XMIL (4.2-5.4); RDW 13.2 % (11.5-14.5); WBC 5.28 X1000 (4.8-10.8)
[2019-04-19 08:26] LABS: AGAP 14; BUN 3 mg/dL (8-22); CALCIUM 8.5 mg/dL (8.8-10.2); CHLORIDE 109 mmol/L (98-107); COSMO 287; CREATININE 0.6 mg/dL (0.5-0.9); ESTIMATED GFR > 60; GLUCOSE 90 mg/dL (70-104); POTASSIUM 3.4 mmol/L (3.5-5.1); SODIUM 146 mmol/L (136-145); TCO2 23 mmol/L (25-35)
[2019-04-19] MEDS ORDERED: D5 1/2 NS 1,000 ML IV SCH (09:30)
[2019-04-19] MEDS ORDERED: DIPRIVAN 1% ONE (11:59)
[2019-04-19] MEDS ORDERED: XYLOCAINE-MPF 2% ONE (11:59)
--- NOTE | 2019-04-19 12:17 | ENDOSCOPY OPERATIVE NOTE ---
[facility] ENDOSCOPY OPERATIVE NOTE , PATIENT: Angeles Templeton ADMISSION DATE: MR#: [id number] : 1965 EGD PROCEDURE REPORT PROCEDURE DATE: 04/19/2019 SURGEON: Oliver Lugo MD STATUS: inpatient POWER LINE INSTALLER: Madeleine Ruelas and Kayla Carrillo PREOPERATIVE DIAGNOSIS: The patient is a 54 yr old female here for an EGD due to Hematemesis 2 days ago, Chronic smoker, Mild Anemia. PROCEDURE PERFORMED: EGD w/ biopsy MEDICATIONS: Per Anesthesia TOPICAL ANESTHETIC: none CONSENT: The patient understands the risks and benefits of the procedure and understands that these r isks include, but are not limited to: sedation, allergic reaction, infection, perforation and/or bleeding. Alternative means of evaluation and treatment include, among others: physical exam, x-rays, and/or surgical intervention. The patient elects to proceed with this endoscopic procedure. HISORY AND PHYSICAL: 04/19/2019 function. Hand hygiene and appropriate measures for infection prevention was taken. After the risks, benefits and alternatives of the procedure were thoroughly explained, Informed consent was verified, confirmed and timeout was successfully executed by the treatment team. The patient was anesthetized with topical anesthesia and the endoscope was introduced through the mouth and advanced to the second portion of the duodenum. Retroflexion wa s performed in the stomach and revealed no abnormalities. The gastroscope was then slowly withdrawn and removed. ESOPHAGUS: The mucosa of the esophagus appeared normal. STOMACH: Erosive Gastritis noted in body and antrum; Biopsied. DUODENUM: Mild duodenal inflammation was found in the duodenal bulb and 1st part duodenum. The duod enal mucosa showed no abnormalities in the 2nd part of the duodenum. SPECIMENS REMOVED: Yes ADVERSE EVENTS: There were no complications. POSTOPERATIVE DIAGNOSIS: 1. The mucosa of the esophagus appeared normal 2. Erosive Gastritis noted in body and antrum; Biopsied 3. Duodenal inflammation was found in the duodenal bulb and 1st part duodenum 4. The duodenal mucosa showed no abnormalities in the 2nd part of the duodenum RECOMMENDATIONS: 1. Await biopsy results 2. Fu in clinic in 6 weeks. Continue PPI once daily for 3 months; Quit smoking 3. Avoid NSAIDs. REPEAT EXAM: Oliver Lugo MD eSigned: Oliver Lugo MD 04/19/2019 12:17 PM cc: PATIENT NAME: Angeles Templeton MR#: [id number]
--- NOTE | 2019-04-19 14:04 | PROGRESS NOTE ---
DATE: 04/19/2019 SUBJECTIVE: This patient is still complaining of abdominal pain. She had an endoscopy done today that showed erosive gastritis that has been biopsied. Duodenal inflammation was found in the duodenal bulb and the 1st part of the duodenum. They have recommended to follow up as an outpatient in six week, PPIs once a day for 3 months, quit smoking and avoid NSAIDs. OBJECTIVE: Vital Signs: Temperature 98.1 degrees, pulse 91, respiratory rate 20, blood pressure 143/64, oxygen saturation 95% on room air. HEENT: Head normocephalic, no trauma. PERRLA. Neck: Supple. No JVD. No masses. Central trachea. Chest: Clear to auscultation. No wheezing. No rales. Abdomen: Soft. Tenderness to palpation at the level of the epigastric area and periumbilical area. No signs of peritoneal irritation. Extremities: No edema, no clubbing, no cyanosis. Neurological examination: The patient is alert. She is oriented. She is sleepy, but arousable. LABORATORY: WBC 5.2, hemoglobin 13.7, hematocrit 39.8, platelets 193. Sodium 146, potassium 3.4, chloride 109, bicarbonate 23. BUN 3, creatinine 0.6, glucose 90, calcium 8.5. ASSESSMENT AND PLAN: 1. Sigmoid diverticulitis. This patient has been placed on Zosyn. We will continue with same management for now. 2. Hematemesis, status post esophagogastroduodenoscopy that showed erosive gastritis and inflammation of part of the duodenum. I will continue following the recommendations of Gastroenterology Department. She has been placed on a full liquid diet. 3. Mild hypotension, resolved. Continue with intravenous fluids. 4. Hypokalemia. I will replace the potassium through the intravenous fluids. 5. Tobacco abuse. This patient has been highly advised against tobacco use. I will continue with daily cessation education. Hopefully if this patient is completely awake and she is tolerating orally, probably we can discharge this patient today in the afternoon or tomorrow morning. cc: Cleve Agudelo MD
[2019-04-19] MEDS: D5 1/2 NS + KCL 20 MEQ 1,000 ML IV SCH (17:46)
[2019-04-19] MEDS: PROTONIX IV SCH (21:46)
[2019-04-19] MEDS: REMERON SOLTAB PO SCH (21:46)
[2019-04-19] MEDS: SODIUM CHLORIDE 0.9% INJ SCH (21:47)
[2019-04-20] MEDS: ZOSYN 3.375 GM in NS 50 ML IV SCH ×2 (00:55→07:55)
[2019-04-20] MEDS: D5 1/2 NS + KCL 20 MEQ 1,000 ML IV SCH (08:01)
[2019-04-20 08:22] VITALS: BP 153/78
[2019-04-20 08:26] LABS: BASO# 0.02 X1000 (0.0-0.2); BASO% 0.4 % (0.0-0.8); EOS# 0.08 X1000 (0.0-0.7); EOS% 1.4 % (0.0-10.0); HEMATOCRIT 42.2 % (37.0-47.0); HEMOGLOBIN 14.6 g/dL (12.0-16.0); LYMPH# 2.24 X1000 (1.2-3.4); LYMPH% 39.2 % (20.5-51.1); MCH 29.1 PG (27-31); MCHC 34.6 g/dL (33-37); MCV 84.2 FL (81-99); MONO# 0.22 X1000 (0.11-0.59); MONO% 3.9 % (1.7-9.3); MPV 11.2 FL (7.4-10.4); NEUT# 3.15 X1000 (1.4-6.5); NEUT% 55.1 % (42.2-75.2); PLT 220 X1000 (130-400); RBC 5.01 XMIL (4.2-5.4); RDW 12.8 % (11.5-14.5); WBC 5.71 X1000 (4.8-10.8)
[2019-04-20 08:37] LABS: AGAP 11; BUN 1 mg/dL (8-22); CALCIUM 8.5 mg/dL (8.8-10.2); CHLORIDE 100 mmol/L (98-107); COSMO 268; CREATININE 0.6 mg/dL (0.5-0.9); ESTIMATED GFR > 60; GLUCOSE 108 mg/dL (70-104); POTASSIUM 3.4 mmol/L (3.5-5.1); SODIUM 136 mmol/L (136-145); TCO2 25 mmol/L (25-35)
[2019-04-20] MEDS ORDERED: KLOR-CON PO ONE (08:38)
--- NOTE | 2019-04-21 07:43 | DISCHARGE SUMMARY ---
ADMISSION DATE: 04/17/2019 DISCHARGE DATE: 04/20/2019 DISCHARGE DIAGNOSES: 1. Sigmoid diverticulitis. 2. Hematemesis, status post EGD that showed erosive gastritis and duodenitis. 3. Hypotension resolved. 4. Hypokalemia, will replace. 5. Tobacco abuse. This patient has been advised against tobacco use. PROCEDURES PERFORMED: 1. Abdomen and pelvis CT scan dated 04/17/2019. Impression: Mild sigmoid diverticulitis, the possibility of enterocolitis cannot be excluded. 2. Chest x-ray dated 04/17/2019. Impression: Mild pulmonary edema. No evidence of pneumothorax or pneumoperitoneum. CONSULTS: Gastroenterology department, endoscopic procedure dated 04/19/2019. Postoperative diagnosis: The mucosa of the esophagus appeared normal. Erosive gastritis noted in the body and antrum, those were biopsied, duodenal inflammation was found in the duodenal bulb and 1st part of the duodenum, the duodenal mucosa showed no abnormality in the 2nd part of the duodenum. HOSPITAL COURSE: A 54-year-old female presented to [facility] ER and admitted on 04/17/2019 due to left lower quadrant abdominal pain with nausea and vomiting. Apparently, she started having hematemesis and abdominal pain the day before admission, and the day of admission, she had a couple episodes of bright red blood coming out with vomiting. She does have a history of IBS. Her white blood cell count was 18. Her urinalysis was negative except for yeast. CT scan of the abdomen and pelvis with IV contrast only showed sigmoid diverticulitis, she was transferred to [facility] and Gastroenterology Department was consulted. We continued with antibiotics during the course of her hospitalization. She had a procedure done, an upper endoscopy that showed erosive gastritis in the body and antrum, and duodenal inflammation was found in the duodenal bulb and 1st part of the duodenum. It has been recommended to follow up with Gastroenterology Department in 6 weeks. Also continue with PPIs once a day for 3 months and quit smoking completely, avoid NSAIDs. The patient has been doing much better. She is tolerating p.o. She is ambulating. She is not complaining of pain. She will be discharged with antibiotics and PPIs and of course the rest of her medications. She will follow up with Dr. Lugo in 6 weeks. PHYSICAL EXAMINATION: Vital Signs: Temperature 98.8 degrees, pulse 75, respiratory rate 16, blood pressure 153/78. Oxygen saturation 95% on room air. HEENT: Head normocephalic. No trauma. PERRLA. Neck: Supple. No JVD. No masses. Central trachea. Chest: Clear to auscultation. No wheezing. No rales. Abdomen: Soft, nontender, nondistended. No hepatosplenomegaly. Extremities: No edema. No clubbing. No cyanosis. Neurologic: Alert, she is oriented x3. No focal deficits. LABORATORY DATA: WBC 5.7, hemoglobin 14.6, hematocrit 42.2, and platelets 220,000. Sodium 136, potassium 3.4, chloride 100, bicarbonate 25, BUN 1, creatinine 0.6, glucose 108, calcium 8.5. DISCHARGE MEDICATIONS: Acetaminophen 650 mg p.o. q.6 hours as needed for fever, amlodipine 5 mg p.o. b.i.d. Augmentin 875/125 mg tablet q.12 hours for 7 days. [place] 7.5 mg p.o. t.i.d. as needed for pain, lisinopril 10 mg p.o. daily mirtazapine 45 mg p.o. at bedtime, omeprazole 40 mg p.o. daily for 3 month, phentermine 1 dose p.o. daily and tizanidine 4 mg p.o. b.i.d. as needed. DISCHARGE MEDICATIONS: This patient will need to avoid the NSAIDs, avoid spicy food, and follow up in [address] Lugo. PPIs for 3 month as well. She needs to stop smoking completely. cc: Cleve Agudelo MD
== END 2019-04-20 09:35 | disposition home or self-care (01) | DRG 391 ==
LOC: P.ED 12:28 → 3N 16:41 → SUATTDRO 16:41
PROVIDERS: ATTEND Internal Medicine